=== PATIENT | female | born 1990 | race Hispanic/Latino ===

== ENCOUNTER 2021-12-16 00:03 | Observation (INO) | payer MEDICAID, OTHER ==
[~2021-12-16] VITALS: Ht 167.6 cm; Wt 72.6 kg
[2021-12-16 00:47] LABS: APPEARANCE,URINE Clear (CLEAR); BILIRUBIN,URINE Negative (NEGATIVE); COLOR,URINE Yellow (YELLOW); GLUCOSE, URINE (UA) Negative (NEGATIVE); KETONES,URINE Negative (NEGATIVE); LEUKOCYTE ESTERASE ,URINE Negative (NEGATIVE); NITRATE,URINE Negative (NEGATIVE); OCCULT BLOOD,URINE Trace (NEGATIVE); PH,URINE 7.5 (5.0-8.0); PROTEIN,URINE Negative (NEGATIVE); UROBILINOGEN,URINE 0.2 mg/dL (0.2-1.0)
[2021-12-16 00:57] LABS: RBC,URINE 0-1 /HPF (0-1); WBC,URINE 0-1 /HPF (0-1)
[2021-12-16 00:58] LABS: BACTERIA,URINE None Seen /HPF (None Seen); SQUAMOUS EPITHELIAL CELL,UR Few /HPF (0-2)
[2021-12-16] MEDS ORDERED: ONDANSETRON 4MG INJ ONE (01:24)
[2021-12-16] MEDS ORDERED: 0.9%NACL 1000ML 1,000 ML IV ONE (01:24)
[2021-12-16] MEDS ORDERED: MORPHINE 4 MG SYG ONE ×2 (01:24→04:20)
[2021-12-16 01:31] LABS: BASOPHILS % (AUTO) 0.7 % (0.0-5.0); EOSINOPHILS % (AUTO) 1.7 % (0.0-8.0); HEMATOCRIT 35.1 % (36-48); LYMPHOCYTES % (AUTO) 27.2 % (21.0-51.0); MEAN CORPUSCULAR HEMOGLOBIN 29.9 pg (27.0-33.0); MEAN CORPUSCULAR HGB CONC 31.9 g/dL (32.0-36.0); MEAN CORPUSCULAR VOLUME 93.6 fL (79-99); MONOCYTES % (AUTO) 5.2 % (3.0-13.0); NEUTROPHILS % (AUTO) 64.7 % (40.0-77.0); PLATELET COUNT (AUTO) 284 K/uL (130-400); RED BLOOD CELL COUNT(AUTO) 3.75 MIL/uL (4.00-5.50); RED CELL DISTRIBUTION WIDTH 13.3 % (11.0-15.5); WHITE BLOOD COUNT (AUTO) 9.4 K/uL (4.8-10.8)
[2021-12-16 01:40] LABS: CREATININE 0.7 mg/dL (0.5-1.5)
[2021-12-16 02:06] LABS: ALBUMIN 3.8 g/dL (3.5-5.0); BILIRUBIN,TOTAL 0.1 mg/dL (0.2-1.0); TOTAL PROTEIN, SERUM 7.3 g/dL (6.0-8.3)
[2021-12-16] MEDS ORDERED: MORPHINE 4 MG SYG IVP ONE (04:30)
[2021-12-16] MEDS: DEXTROSE 5 %-0.45 % NACL 1,000 ML IV SCH ×2 (05:49→16:00)
[2021-12-16 06:30] VITALS: BP 108/69
[2021-12-16] MEDS ORDERED: ACET500P24 PO (06:56)
[2021-12-16] MEDS ORDERED: ANTI-ANXIETY PO (06:56)
[2021-12-16 07:13] LABS: HEMATOCRIT 32.4 % (36-48)
[2021-12-16 07:29] VITALS: BP 100/64
[2021-12-16 11:22] VITALS: BP 94/56
[2021-12-16 15:05] VITALS: BP 90/58
[2021-12-16] MEDS ORDERED: ACETAMINOPHEN WITH CODEINE 1 TAB TAB PO PRN (16:30)
[2021-12-16] MEDS: ACETAMINOPHEN WITH CODEINE 1 TAB TAB PO PRN (17:14)
[2021-12-16 19:21] VITALS: BP 95/56
[2021-12-16 23:12] VITALS: BP 94/53
[2021-12-17] VITALS (22 sets, daily range): BP systolic 90–110; BP diastolic 46–86
[2021-12-17] MEDS: DEXTROSE 5 %-0.45 % NACL 1,000 ML IV SCH ×3 (00:02→08:08)
[2021-12-17] MEDS: ACETAMINOPHEN WITH CODEINE 1 TAB TAB PO PRN (00:13)
[2021-12-17 07:23] LABS: HEMATOCRIT 32.1 % (36-48)
[2021-12-17] MEDS ORDERED: LACTATED RINGERS 1000ML 1,000 ML IV ONE (12:32)
[2021-12-17] MEDS ORDERED: LIDOCAINE PF 100MG/5ML (2%) SYRINGE 5ML ONE (12:44)
[2021-12-17] MEDS ORDERED: PROPOFOL 10 MG/ML 20ML VIAL IV ONE (12:45)
[2021-12-17] MEDS ORDERED: MIDAZOLAM HCL 1 MG/ML 2ML VIAL ONE (12:45)
[2021-12-17] MEDS ORDERED: ONDANSETRON 4MG INJ ONE (12:45)
[2021-12-17] MEDS ORDERED: ROCURONIUM 10MG/1ML SYR 10 MG/ML ML ONE (12:45)
[2021-12-17] MEDS ORDERED: FENTANYL CITRATE PF 50 MCG/1 ML 2ML VIAL ONE ×2 (12:46→13:58)
[2021-12-17] MEDS ORDERED: EPHEDRINE SULFATE 50 MG/ML AMPULE ONE (13:19)
[2021-12-17] MEDS ORDERED: CEFAZOLIN SODIUM 1 GM VIAL ONE (13:23)
[2021-12-17] MEDS ORDERED: BUPIVACAINE/PF 0.25% 30ML VIAL IJ ONE (13:28)
[2021-12-17] MEDS ORDERED: MEPERIDINE-PF 25 MG/ML SYG ONE ×3 (13:46→14:45)
[2021-12-17] MEDS ORDERED: GLYCOPYRROLATE 1 MG/5 ML SYRINGE ONE (13:59)
[2021-12-17] MEDS ORDERED: NEOSTIGMINE 5MG/5ML SYR IV ONE (14:00)
[2021-12-17] MEDS ORDERED: DEXAMETHASONE SOD PHOSPHATE 10MG/ML 1ML VIAL ONE (14:01)
[2021-12-17] MEDS ORDERED: KETOROLAC 30MG VIAL (30MG/ML) ONE (14:31)
== END 2021-12-17 19:10 | disposition home or self-care (01) ==
LOC: EDH 00:03 → EDHIP 00:04 → UNDOADMOB 05:14 → EDHIP 05:14 → WSH 06:10
PROVIDERS: ADMIT Internal Medicine; ATTEND Internal Medicine
DX: O00.102 Left tubal pregnancy without intrauterine pregnancy (principal); Z20.822 Contact with and (suspected) exposure to COVID-19; R10.2 Pelvic and perineal pain; J45.909 Unspecified asthma, uncomplicated; Z3A.00 Weeks of gestation of pregnancy not specified
CPT/HCPCS: 36415 ×2; 59151; 76817; 80053; 81001; 84702 ×2; 85014 ×2; 85018 ×2; 85025; 86850; 86900; 86901; 87635; 96374; 96375; 99284; A4215; A4344; A4606; A4649 ×2; A4930; C1769 ×3; G0168; G0378 ×36; J0690; J1100; J1885; J2001; J2175 ×3; J2250; J2270 ×2; J2405 ×2; J2704; J2710; J3010 ×2; J3490 ×3; J7030; J7120; 96361

== ENCOUNTER → 2022-06-20 | Outpatient (CLI) | payer BC, OTHER ==
[~2022-06-20] MED LIST: ANTI-ANXIETY PO
== END | disposition home or self-care (01) ==
LOC: RAH 12:49
PROVIDERS: ATTEND Internal Medicine
DX: N63.20 Unspecified lump in the left breast, unspecified quadrant (principal)
CPT/HCPCS: 76641